=== PATIENT | male | born 1995 | race American Indian/Alaskan Native ===

== ENCOUNTER 2019-10-25 10:46 | Emergency (ER) | payer SELFPAY ==
[2019-10-25 10:54] VITALS: BP 131/77
--- NOTE | 2019-10-25 11:32 | Emergency Department Report ---
Chief Complaint: Upper Respiratory Infection Stated Complaint: DEHYRATION Time Seen by Provider: 10/25/19 11:29 - HPI History of Present Illness: I think I have the flu" Mr. Sweeney is a 24-year-old healthy male who presents with nasal congestion sore throat and body aches for one day. He feels dehydrated. On exam, he appears well with clear breath sounds and normal oropharyngeal exam. Medical screening exam performed and completed. No evidence of limb and life threatening. Vital signs are stable. Given supportive care sections. He appears well hydrated. Moist mucous membranes. - Exam Vital Signs: Vital Signs 10/25/19 10:53 Temperature 99.1 F Pulse Rate 83 Respiratory 18 Rate Blood Pressure 131/77 O2 Sat by Pulse 98 Oximetry MSE screening note: Focused history and physical exam performed. Due to findings the following was ordered: ED Disposition for MSE Clinical Impression: Upper respiratory infection Disposition: - MED SCREENING EXAM-LEFT Is pt being admited?: No Does the pt Need Aspirin: No Condition: Stable Forms: Work/School Release Form(ED)
== END 2019-10-25 11:39 | disposition left against medical advice (07) ==
LOC: ED 10:46
DX: J06.9 Acute upper respiratory infection, unspecified (principal)

== ENCOUNTER 2022-07-15 16:05 | Emergency (ER) | payer SELFPAY ==
[2022-07-15 16:32] VITALS: BP 118/75
[2022-07-15 17:36] LABS: Alanine Aminotransferase 14 units/L (7-56); Albumin 4.8 g/dL (3.9-5); BUN/Creatinine Ratio 16; Blood Urea Nitrogen 16 mg/dL (9-20); Calcium 9.6 mg/dL (8.4-10.2); Hemolysis Index 4
[2022-07-15 17:48] LABS: Basophils # (Auto) 0.1 K/mm3 (0.0-0.1); Basophils % (Auto) 0.7 % (0.0-1.8); Eosinophils # (Auto) 0.1 K/mm3 (0.0-0.4); Eosinophils % (Auto) 1.6 % (0.0-4.3); Hemoglobin 15.6 gm/dl (11.8-15.2); Lymphocytes # (Auto) 1.6 K/mm3 (1.2-5.4); Lymphocytes % (Auto) 19.7 % (13.4-35.0); Mean Corpuscular HGB Conc 33 % (32-34); Mean Corpuscular Volume 100 fl (84-94); Monocytes % (Auto) 12.2 % (0.0-7.3); Platelet Count 243 K/mm3 (140-440); Red Blood Count 4.72 M/mm3 (3.65-5.03); Red Cell Distribution Width 12.4 % (13.2-15.2)
== END 2022-07-15 22:10 | disposition left against medical advice (07) ==
LOC: ED 16:05
DX: R10.9 Unspecified abdominal pain (principal); R11.10 Vomiting, unspecified; Z53.21 Procedure and treatment not carried out due to patient leaving prior to being seen by health care provider
CPT/HCPCS: 36415; 80053; 83690; 85025